=== PATIENT | male | born 1955 | race Caucasian/White ===

== ENCOUNTER 2024-06-24 13:19 | Outpatient (CLI) | payer MEDICARE, BC, SELFPAY ==
--- NOTE | 2024-06-24 13:45 | MR_ITS ---
[facility] [address] [facility] [address] Phone:?[phone] Fax:?[phone] Referring Physician Information: Francois Allison M.D. [address] [facility] [address] Phone:?[phone] Fax:?[phone] Patient:Rhea Manrique D.O.B:?1955 Sex:?Male Phone:?[phone] [facility] MRN:?[id number] Exam Date:?06/24/2024 EXAM: MRI EXAMINATION OF THE RIGHT SHOULDER CLINICAL INFORMATION: Right shoulder pain. No specific injury. History of surgery. Evaluate rotator cuff tear. TECHNICAL INFORMATION: Coronal STIR as well as axial, sagittal and coronal PD and T2-weighted images acquired. Correlation is made with September 20, 2009. INTERPRETATION: Bones: Postsurgical appearance of acromioplasty and AC joint resection. No Hill-Sachs impaction deformity. Patchy marrow edema signal and cystic change involves the greater tuberosity. No occult fracture or AVN. Rotator Cuff: Series 9 image 4 as well as series 5 images 10 and 11 demonstrate a 0.4 cm AP by 1.1 cm lateral segment of abnormality consisting of slender foci of intrasubstance partial tearing involving the mid supraspinatus tendon insertion. There are mild to moderate surrounding changes of tendinopathy. Series 9 image 9 as well as series 5 images 10 through 13 demonstrate a 1.7 cm AP by 0.3 cm mediolateral partial-thickness bursal sided tear involving the supraspinatus musculotendinous junction and involving one half of the fiber thickness. Moderate infraspinatus tendinopathy. The teres minor tendon is intact. There is a small intrasubstance partial tear involving the superior subscapularis tendon with mild to moderate tendinopathy. No appreciable rotator cuff muscle belly atrophy. Coracoacromial arch: Postsurgical appearance of acromioplasty. The bony acromiohumeral interval is measuring 10 to 11 mm. There is no thickening identified of the coracoacromial ligament. Acromioclavicular joint: Status post AC joint resection. There is a lobulated 2.1 cm ganglion cyst within the expected area of the joint. Mild fluid and edema signal within the subacromial/subdeltoid bursa areas. Biceps tendon: There is medial subluxation of the long head biceps tendon from the superior bicipital groove. Moderate tendinopathy traversing this level and continuing intra-articular. Glenohumeral joint and labrum: No significant glenohumeral joint effusion. No discrete loose body within the joint. There are patchy changes of chondromalacia identified along the periphery of the glenoid with subchondral cystic changes along its inferior aspect. There is a 1 x 0.3 cm chondral defect overlying the anterosuperior medial aspect of the humeral head. There is tearing involving the superior aspect of the labrum. No other definite evidence for labral tear. No discrete paralabral cyst is identified. CONCLUSION: 1. Mild to moderate supraspinatus tendinopathy. There are slender foci of intrasubstance partial tearing involving the mid tendon insertion. Additional moderate-sized partial-thickness bursal sided tear of the musculotendinous junction, maximally involving one half of the fiber thickness. 2. Mild to moderate subscapularis tendinopathy with a small intrasubstance partial tear of the superior tendon fibers. 3. Moderate infraspinatus tendinopathy. 4. Biceps rody lesion with medial subluxation of the long head biceps tendon from the superior bicipital. Moderate changes of tendinopathy. 5. 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 There is a small to moderate-sized chondral defect overlying the anterosuperior medial humeral head. 6. The subacromial space is adequately decompressed following acromioplasty and AC joint resection. Mild fluid and edema signal within the subacromial/subdeltoid bursa areas. KES Electronically signed on 06/24/2024 4:33:00 PM by Edgar Drake M.D.
== END 2024-06-24 13:20 | disposition home or self-care (01) ==
LOC: MRI 13:21
PROVIDERS: PCP Family Medicine; Visit Provider Orthopaedic Surgery
DX: M25.511 Pain in right shoulder (principal); M75.101 Unspecified rotator cuff tear or rupture of right shoulder, not specified as traumatic; M75.81 Other shoulder lesions, right shoulder; M94.211 Chondromalacia, right shoulder
CPT/HCPCS: 73221

== ENCOUNTER 2024-07-20 06:41 | Day surgery (SDC) | payer MEDICARE, BC, SELFPAY ==
--- OUTSIDE RECORDS SUMMARY | 2024-07-20 06:43 | XMS_ITS | Continuity of Care Document ---
Author Name Nw[facility]IN User [facility] Address Unknown Organization Unknown Address Unknown Encounters FILTER APPLIED:Only known Encounters with Admission Date within the last 5 years Encounter Location Admission Discharge Billing Code Cloth Seconds S[facility] DE[facility]
--- OUTSIDE RECORDS SUMMARY | 2024-07-20 06:44 | XMS_ITS | Clinical Summary ---
Author Organization [employer] [facility] Address [place], [place] [address] Care Team Providers Care Ordering Machine Operator Name Role Phone Vinod Serrano MD Primary Care Provider [phone] Allergies No known active allergies Medications cholecalciferol (VITAMIN D) 1,000 unit tablet Take 1,000 Units by mouth once daily. Active triamcinolone (ARISTOCORT; KENALOG) 0.1 % creamIndications:D ermatitis Apply twice daily for up to 2 weeks then take a week off and repeat 80 g 1 3 Active magnesium 250 mg tab Take 250 mg by mouth once daily. Active atorvastatin (LIPITOR) 40 mg tabletIndications: Hyperlipidemia, unspecified hyperlipidemia type Take 1 Tablet (40 mg) by mouth once daily. 90 Tablet 3 4 Active tadalafiL (CIALIS) 10 mg tabletIndications: Other male erectile dysfunction Take 1 Tablet (10 mg) by mouth once daily if needed (Erectile dysfunction). Take 30 minutes before sexual activity. 10 Tablet 11 4 Active polyethylene glycol-electrolyte (GOLYTELY) 236-22.74-6.74 -5.86 gram suspensionIndicati ons:Encounter for screening colonoscopy Drink 2 liters the day before the procedure and 2 liters 6 hours prior to procedure. 4000 mL 4 Active oxyCODONE (ROXICODONE) 5 mg immediate release tabletIndications: Hammertoe of right foot Take 1-2 Tablets (5-10 mg) by mouth every 4 hours if needed for Pain. 20 Tablet 5 Active Active Problems Problem Noted Date Diagnosed Date Colon polyp 06/22/2024 Overview (06/22/2024): Colonoscopy 06/2024 TA, repeat in 7 years S/P cervical spinal fusion 10/19/2019 Iron deficiency anemia kiko chery to inadequate dietary iron intake 07/25/2019 Overview (07/25/2019): Check Hemoglobin at next office visit. 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 06/25/2019 Hyperlipidemia 04/09/2016 Erectile dysfunction 07/20/2008 Resolved Problems Problem Noted Date Diagnosed Date Resolved Date Essential hypertension 09/12/201807/17 Routine adult health maintenance 05/26/2014 07/17/2024 Overview (05/26/2014): Colonoscopy 05/2014 normal repeat in 10 years Special screening for malign ant neoplasm of prostate 05/30/2007 07/17/2024 Encounters Date Type Department Care Team Description 07/17/2024 9:10 AM SPECIAL EDUCATION SECRETARY Office Visit [facility] [address] [facility] [place] [address] Juan Anton MD Preoperative Exam (07/20/2024/Caryn gunter correction 5th toe right/DR DAYNA BERNAL/[facility]/[phone] /) 07/17/2024 Travel 06/24/2024 9:45 AM SPECIAL EDUCATION SECRETARY Ancillary Procedure [facility] [address] [facility] [place] [address] 06/24/2024 9:30 AM SPECIAL EDUCATION SECRETARY Office Visit [facility] [address] [facility] [place] [address] Dayna Bernal DPM Consult (Right 5th toe ) 06/24/2024 Orders Only [facility] Scanner 1 scan: (1-Ord) [facility], MR SHOULDER RT WO CON, 06/24/2024 06/24/2024 Travel 06/20/2024 Travel 06/17/2024 Lab Requisition [facility] [phone] Lucas Wood MD 06/16/2024 11:18 AM SPECIAL EDUCATION SECRETARY - 06/16/2024 11:59 PM SPECIAL EDUCATION SECRETARY Hospital Encounter Lucas Wood MD 06/16/2024 Orders Only [facility] Scanner 1 scan: (1-Ord) [facility] 06/16/2024 Surgery [facility] [address] [place] [address] Lucas Wood MD Colonoscopy 06/16/2024 Orders Only [facility] [address] [place] [address] Lucas Wood MD <No scans attached> 06/09/2024 Telephone [facility] [address] [place] [address] Lucas Wood MD Appointment Reminder (Colonoscopy on 06/16/2024 at [facility]) 05/28/2024 Telephone [facility] [address] [place] [address] Lucas Wood MD Need Meds 05/22/2024 1:05 PM SPECIAL EDUCATION SECRETARY Office Visit [facility] [address] [place] [address] Vinod Serrano MD Medicare ANNUAL (subsequent) Visit (70 years); Immunization/Injecti on 05/22/2024 Travel 05/04/2024 Refill [facility] [address] [place] [address] Vinod Serrano MD Refill Request (Lipitor 40mg) from Last 3 Months Immunizations Name Administration Dates Next Due COVID-19 VACCINE SPIKEVAX (M ODERNA 50MCG/0.5ML) 12YO+ PFS 05/22/2024 COVID-19 vaccine (Pfizer-Bio NTech 30mcg/0.3mL) 12YO+ BIVALENT PF, MDV 08/10/2022 COVID-19 vaccine (Pfizer-Bio NTech 30mcg/0.3mL) 12YO+ CHARLETTE-SUCROSE PF, MDV 12/06/2021 COVID-19 vaccine (Pfizer-Bio NTech 30mcg/0.3mL) PF, MDV 05/21/2021 Hepatitis A (Adult) 09/16/2014 Hepatitis B, Unspecified 04/27/2002,03/26/2002 Influenza RIV4 (Age 18+ Year s) PRESERV FREE 04/17/2020 Influenza, High-dose Inactivated 05/19/2019 Influenza, High-dose Quadriv alent Inactivated 05/22/2021 Influenza, IIV3 (Age >=3 years) 04/16/20 13,04/09/2011,04/17/2010,2008,07/20/2008 Influenza, IIV4 05/19/2019, 7,04/17/2016,2013,04/16/2013 Influenza, Inactivated AIIV4 (Age 65+ Years) Preserv Free 04/29/2023,08/10/2022 Influenza, Inactivated IIV3 (Age 65+ Years) Preserv Free 05/22/2024 Pneumococcal Conj 20-valent (Prevnar 20) 05/22/2024 Tdap 06/12/2017,05/30/2007 Typhoid (injectable) 09/16/2014 Family History Medical History Relation Name Comments Other Brother 1 in a MVA y oung Other Brother 2 in a MVA y oung Heart failure Father at 87 of CHF Hypertension Maternal Aunt Heart Disease Maternal Grandfather o f HI at 59 Dementia Maternal Uncle at 70 Dementia Mother at 70 Hypertension Mother Relation Name Status Comments Brother 1 Brother 2 Father (Age 87) Pnemonia Maternal Aunt Maternal Grandfather Maternal Uncle Mother (Age 70) Dementia Social History Tobacco Use Types Packs/Day Years Used Date Smoking Tobacco: Former Cigarettes 1 20 0 07/15/1964 - 07/15/1984 Smokeless Tobacco: Former Chew Quit: 07/29/2012 Tobacco Cessation:Counseling Given: Yes Alcohol Use Standard Drinks/Week Comments Yes 2 (1 standard drink = 0.6 oz pur e alcohol) see screening [facility] Utilities Answer Date Recorded Do you have trouble paying f or utilities (for example, heat, electricity, water, phone)? Yes 05/22/2024 PHQ-2 Answer Date Recorded PHQ-2 TOTAL SCORE 0 05/22/2024 Social Connections Answer Date Recorded Do you often feel lonely or isolated from those around you? 0 05/22/2024 Alcohol Use Answer Date Recorded How often do you have a drink containing alcohol ? 3 05/22/2024 How many drinks containing a lcohol do you have on a typical day when you are drinking? 0 05/22/2024 How often do you have five or more drinks on one occasion? 0 05/22/2024 Financial Resource Strain Answer Date R ecorded Difficulty of Paying Living Expenses 3 05/22/2024 Difficulty of Paying Living Expenses Not on file 05/22/2024 Food Insecurity Answer Date Recorded Do you worry your food will run out before you are able to buy more? 1 05/22/2024 Transportation Needs Answer Date Record ed Does lack of transportation keep you from medica l appointments? 1 05/22/2024 Does lack of transportation keep you from work, meetings or getting things that you need? 1 05/22/2024 Housing Stability Answer Date Recorded What is your housing situation today? 1 05/22/2024 Sex and Gender Information Value Date Recorded Sex Assigned at Not on file Legal Sex Male 5:24 AM SPECIAL EDUCATION SECRETARY Gender Identity Not on file Sexual Orientation Not on file Occupation Industry Job Start Date Job End Date [employer] Not on file Not on file Not on file Obstetrics History Last Filed Vital Signs Vital Sign Reading Time Taken Comments Blood Pressure 117/73 07/17/2024 9:11 AM SPECIAL EDUCATION SECRETARY Pulse 63 07/17/2024 9:11 AM SPECIAL EDUCATION SECRETARY Temperature 36.6 C (97.8 F) 07/17/2024 9:11 AM SPECIAL EDUCATION SECRETARY Respiratory Rate 14 07/17/2024 9:11 AM SPECIAL EDUCATION SECRETARY Oxygen Saturation 100% 07/17/2024 9:11 AM SPECIAL EDUCATION SECRETARY Inhaled Oxygen Concentration - - Weight 83.5 kg (184 lb) 07/17/2024 9:11 AM SPECIAL EDUCATION SECRETARY Height 172.4 cm (5' 7.87) 07/17/2024 9:11 AM CS T Body Mass Index 28.08 07/17/2024 9:11 AM SPECIAL EDUCATION SECRETARY Plan of Treatment Upcoming Encounters Date Type Department Care Team (Late st Contact Info) Description 07/20/2024 8:00 AM SPECIAL EDUCATION SECRETARY Office Visit [facility] [address] [place] [phone] Dayna Bernal DPM [address] [facility] [place] [address] 07/22/2024 10:30 AM SPECIAL EDUCATION SECRETARY Office Visit [facility] [address] [place] [address] Dayna Bernal DPM [address] [facility] [place] [address] 08/05/2024 10:30 AM SPECIAL EDUCATION SECRETARY Office Visit [facility] [address] [facility] [place] [address] Dayna Bernal DPM [address] [facility] [place] [address] 09/02/2024 10:30 AM SPECIAL EDUCATION SECRETARY Office Visit [facility] [address] [facility] [place] [address] Dayna Bernal DPM [address] [facility] [place] [address] Health Maintenance Due Date Last Done Comments Zoster (shingles) series for age 50+ (1 of 2) 10/06/2003 RSV vaccine for adults or (1 - Risk 60-74 years 1-dose series) 2013 Depression screening for age 12+ 05/22/2025 05/22/2024, 03/19/2023, 12/06/2021, Additional history exists Medicare Wellness for age 65+ 05/23/2025 05/22/2024 BMI (ht and wt on same day) for age 18+ 07/17/2025 07/17/2024, 05/22/2024, 03/19/2023, Additional history exists Tetanus booster 06/12/2027 06/12/2017, 05/30/2007 Lipids for age 45-75 05/22/2029 05/22/2024, 02/01/2023, 12/06/2021, Additional history exists Colonoscopy through age 75 06/16/2031 06/16/2024, Tdap Completed 06/12/2017, 05/30/2007 Hepatitis C screening for ag e 18-79 Completed 09/24/2017 AAA screening age 65-74 Completed 03/22/2023 COVID-19 vaccine series Completed 05/22/20 24, 04/30/2023, 08/10/2022, Additional history exists Influenza for age 65+ Completed 05/22/2024 , 04/29/2023, 08/10/2022, Additional history exists Pneumococcal series for age 50+ Completed 4 Medical Devices Implanted Type Area Retort Setter Device Identifier Shelf Expiration Date Model / Serial / Lot [id number] ne Matrix 5cc [place] Plus Paste Dbm Implanted:Qty: 1 on 07/31/2019 by Jamshid Jordan MD at [facility] Explanted:at [facility] (Quantity not on file) Spine [employer] Spine/Ortho 04/05/2021 [id number] / [id number] / Screw Cerv 3.5x24mm Infinity Multi Axial - [id number] Implanted:Qty: 1 on 07/31/2019 by Jamshid Jordan MD at [facility] Spine [employer] Spine[employer] [id number] / / Screw Cerv 3.5x20mm Infinity Multi Axial - [id number] Implanted:Qty: 1 on 07/31/2019 by Jamshid Jordan MD at [facility] Spine [employer] Sp[employer] [id number] / / Set Screw Cerv Infinity Std - [id number] Implanted:Qty: 6 on 07/31/2019 by Jamshid Jordan MD at [facility] Spine [employer] Spine[employer]Or[employer] [id number] / / Screw Cerv 3.5x14mm Infinity Multi Axial - [id number] Implanted:Qty: 3 on 07/31/2019 by Jamshid Jordan MD at [facility] Spine [employer] Spine[employer]Or[employer]o [id number] / / Screw Cerv 3.5x12mm Infinity Multi Axial - [id number] Implanted:Qty: 1 on 07/31/2019 by Jamshid Jordan MD at [facility] Sp[employer] Sp[employer] [id number]# / / Screw Cerv 4x16mm Infinity Multi Axial - [id number] Implanted:Qty: 1 on 07/31/2019 by Jamshid Jordan MD at [facility] Spine [employer] Spine[employer]Or[employer] [id number]# / / Espinoza Cerv 3.5x50mm Infinity Pre-Cut - [id number] Implanted:Qty: 2 on 07/31/2019 by Jamshid Jordan MD at [facility] Spine [employer] [id number] / / Procedures Procedure Name Priority Date/Time Associated Diagnosis Comments XR FOOT 3 VIEWS RIGHT Routine 06/24/2024 9:50 AM SPECIAL EDUCATION SECRETARY Toe pain, chronic, right SCAN-MRI INTERPRETATION 06/24/2024 12:00 AM SPECIAL EDUCATION SECRETARY LAB TRACKING EVENT Routine 06/16/2024 12 :35 PM SPECIAL EDUCATION SECRETARY PATH TISSUE EXAM Routine 06/16/2024 12:3 5 PM SPECIAL EDUCATION SECRETARY SCAN-COLONOSCOPY 06/16/2024 12:0 0 AM SPECIAL EDUCATION SECRETARY PSA (TOTAL) ([facility]) Routine 05/22/2024 2 :13 PM SPECIAL EDUCATION SECRETARY Prostate cancer screening LIPID PANEL W REFLEX MEASURED LDL Routine 05/22/2024 2:13 PM SPECIAL EDUCATION SECRETARY Hyperlipidemia, unspecified hyperlipidemia type US ABD AORTA SCREENING Routine 2:28 PM CDT Screening for AAA (aortic abdominal aneurysm) ANTI HCV Routine 09/24/2017 7:35 AM CDT Need for hepatitis C screening test SURGICAL PROCEDURE (TYPE PROCEDURE DESCRIPTION BELOW) Encounter for screening colonoscopy from Last 3 Months or Most Recently Relevant to Health Maintenance Results * XR FOOT 3 VIEWS RIGHT (06/24/2024 9:50 AM SPECIAL EDUCATION SECRETARY) Anatomical Region Laterality Modality FEET, FOOT R Computed Radiogr aphy 06/24/2024 12:4 7 PM SPECIAL EDUCATION SECRETARY Narrative 06/24/2024 12:47 PM SPECIAL EDUCATION SECRETARY For Patients: As a result of the Century Cures Act, medical imaging exams and procedure reports are released immediately into your electronic medical record. You may view this report before your referring provider. If you have questions, please contact your health care provider. INDICATION: Chronic toe pain. TECHNIQUE: Three weightbearing views of the right foot. FINDINGS: Advanced degenerative change in the right 1st MTP joint with joint space narrowing, hypertrophic and subchondral cystic change. Prominent spurring on the medial dorsal metaphysis, possibly posttraumatic. Plantar heel spur and calcification in the distal Achilles tendon. Dictated by Franklin Guerra MD @ 06/24/2024 12:47:58 PM (Electronically Signed) Procedure Note Franklin Guerra MD - 06/24/2024 For Patients: As a result of the Century Cures Act, medical imagingexams and procedure reports are released immediately into your electronicmedical record. You may view this report before your referring provider.If you have questions, please contact your health care provider. INDICATION: Chronic toe pain. TECHNIQUE: Three weightbearing views of the right foot. FINDINGS: Advanced degenerative change in the right 1st MTP joint with joint spacenarrowing, hypertrophic and subchondral cystic change. Prominent spurringon the medial dorsal metaphysis, possibly posttraumatic. Plantar heel spurand calcification in the distal Achilles tendon. Dictated by Franklin Guerra MD @ 06/24/2024 12:47:58 PM (Electronically Signed) us Dayna Bernal DPM GENERAL IMAGING Final Res ult * SCAN-MRI INTERPRETATION (06/24/2024 12:00 AM SPECIAL EDUCATION SECRETARY) Anatomical Region Laterality Modality Other us Scanner OTHER Final Result * LAB TRACKING EVENT (06/16/2024 12:35 PM SPECIAL EDUCATION SECRETARY) Other (Other) Client Collect / Unknown 06/16/2024 12:35 PM SPECIAL EDUCATION SECRETARY 06/17/2024 6:26 PM SPECIAL EDUCATION SECRETARY us Lucas Wood MD LAB BILL ONLY Final Res ult [facility] [address] [place] [address], [place] * PATH TISSUE EXAM (06/16/2024 12:35 PM SPECIAL EDUCATION SECRETARY) Case Report Pathology Report Case: [id number] Authorizing Provider: Lucas Wood MD Collected: 06/16/2024 1235 Ordering Location: [facility] Received: 06/17/20242114 Pathologist: Zackary Sheldon MD Specimen: Cecal Polyp 06/22/2024 10:54 AM SPECIAL EDUCATION SECRETARY [facility] Final Diagnosis A) COLON, CECUM, POLYPECTOMY: 1. Tubular adenoma 2. Negative for high grade dysplasia 3. Per the colonoscopy report: a. Polyp size: 1 mm b. Resection: Complete c. Retrieval: Complete 06/22/2024 10:54 AM SPECIAL EDUCATION SECRETARY [facility] Clinical Information Mr. Manrique is a 68 y.o. undergoing screening colonoscopy. 06/22/2024 10:54 AM SPECIAL EDUCATION SECRETARY [facility] Gross Description A) Received in formalin is a burris mucosal fragment measuring 3 mm in greatest dimension, which is entirely submitted in one cassette. It is labeled with the patient's name and designated cecal polyp. Pallavi Talon 06/18/2024 10:58 AM 06/22/2024 10:54 AM SPECIAL EDUCATION SECRETARY [facility] Microscopic Description The final diagnosis is based on microscopic examination of appropriate sections of all specimens. 06/22/2024 10:54 AM SPECIAL EDUCATION SECRETARY [facility] Additional Information Interpreted at [facility][1] Laboratory - [address], [place] [address] 06/22/2024 10:54 AM SPECIAL EDUCATION SECRETARY [facility] Other (Cecal Polyp) 06/16/2024 12:35 PM SPECIAL EDUCATION SECRETARY 06/17/2024 9:15 PM SPECIAL EDUCATION SECRETARY us Lucas Wood MD PATHOLOGY/CYTOLOGY Final Result [facility] [address] [place] [address], [place] * SCAN-COLONOSCOPY (06/16/2024 12:00 AM SPECIAL EDUCATION SECRETARY) us Scanner OTHER Final Result * PSA (TOTAL) (QUEST) (05/22/2024 2:13 PM SPECIAL EDUCATION SECRETARY) PSA, TOTAL 0.51 < OR = 4.00 ng/mL [facility] Comment: The total PSA value from this assay system is standardized against the WHO standard. The test result will be approximately 20% lower when compared to the equimolar-standardized total PSA (Breana Selma). Comparison of serial PSA results should be interpreted with this fact in mind. This test was performed using the Siemens chemiluminescent method. Values obtained from different assay methods cannot be used interchangeably. PSA levels, regardless of value, should not be interpreted as absolute evidence of the presence or absence of disease. Blood BLOOD SPECIMEN / Unknown 05/22/2024 2:13 PM SPECIAL EDUCATION SECRETARY 05/22/2024 2:14 PM SPECIAL EDUCATION SECRETARY Vinod Serrano MD SEND OUTS Final Resu lt [employer] [facility] [address] [place] [address], [facility] [address] [place] [address] * (ABNORMAL) LIPID PANEL W REFLEX MEASURED LDL (05/22/2024 2:13 PM SPECIAL EDUCATION SECRETARY) CHOLESTEROL, TOTAL 179 <200 mg/dL [facility] HDL CHOLESTEROL 36(L) > OR = 40 mg/dL [facility] [facility] TRIGLYCERIDES 233(H) <150 mg/dL [facility] [facility] Comment: If a non-fasting specimen was collected, consider repeat triglyceride testing on a fasting specimen if clinically indicated. Greer et al. J. of Clin. Lipidol. 2015;9:129-169. LDL-CHOLESTEROL 108(H) mg/dL (calc) [facility] [employer] [facility] Comment: Reference range: <100 Desirable range <100 mg/dL for primary prevention; <70 mg/dL for patients with CHD or diabetic patients with > or = 2 CHD risk factors. LDL-C is now calculated using the Lucas-Ponce calculation, which is a validated novel method providing better accuracy than the Friedewald equation in the estimation of LDL-C. Lucas SS et al. JC. 2013;310(77): 9571-8531 (http://education.[employer]/faq/MZZ591) CHOL/HDLC RATIO 5.0(H) <5.0 (calc) [facility] NON HDL CHOLESTEROL 143(H) <130 mg/dL (calc) [facility] Comment: For patients with diabetes plus 1 major ASCVD risk factor, treating to a non-HDL-C goal of <100 mg/dL (LDL-C of <70 mg/dL) is considered a therapeutic option. Blood BLOOD SPECIMEN / Unknown 05/22/2024 2:13 PM SPECIAL EDUCATION SECRETARY 05/22/2024 2:14 PM SPECIAL EDUCATION SECRETARY us Vinod Serrano MD CHEMISTRY Final Resu lt [employer] [facility] [address] [place] [address], [employer] [address] [address] * US ABD AORTA SCREENING [[id number]] (03/22/2023 2:28 PM CDT) Anatomical Region Laterality Modality Abdomen, AORTA Ultrasound 03/22/2023 2:47 PM CDT Narrative 03/22/2023 2:47 PM CDT For Patients: As a result of the Century Cures Act, medical imaging exams and procedure reports are released immediately into your electronic medical record. You may view this report before your referring provider. If you have questions, please contact your health care provider. Examination: US abdominal aorta Indication: Abdominal aortic aneurysm screening. Technique: Prather scale and color Doppler images of the aorta and common iliac arteries are obtained. Comparison: None Findings: Proximal aorta: Not visualized due to overlying bowel gas Mid aorta: 1.7 x 2.0 cm Distal aorta: 1.8 x 1.4 cm Right common iliac artery: 1.6 x 1.6 cm Left common iliac artery: 1.5 x 1.3 cm Impression: No evidence of abdominal aortic aneurysm within the visualized aorta. Dictated by Michael Husain MD @ Mar 22 2023 2:47PM (Electronically Signed) Procedure Note Michael Husain MD - 03/22/2023 For Patients: As a result of the Cures Act, medical imagingexams and procedure reports are released immediately into your electronicmedical record. You may view this report before your referring provider.If you have questions, please contact your health care provider. Examination: US abdominal aorta Indication: Abdominal aortic aneurysm screening. Technique: Prather scale and color Doppler images of the aorta and common iliac arteriesare obtained. Comparison: None Findings: Proximal aorta: Not visualized due to overlying bowel gas Mid aorta: 1.7 x 2.0 cm Distal aorta: 1.8 x 1.4 cm Right common iliac artery: 1.6 x 1.6 cm Left common iliac artery: 1.5 x 1.3 cm Impression: No evidence of abdominal aortic aneurysm within the visualized aorta. Dictated by Michael Husain MD @ Mar 22 2023 2:47PM (Electronically Signed) Vinod Serrano MD Final Resu lt * ANTI HCV [[id number]] (09/24/2017 7:35 AM CDT) HEPATITIS C ANTIBODY Non-React yonathan Non-React yonathan 09/24/2017 2:26 PM CDT [facility] Comment:Antibodies to HCV no t detected; does not exclude the possibility of exposure to HCV. Blood BLOOD SPECIMEN / Unknown Venipuncture / Unknown 09/24/2017 7:35 AM CDT 09/24/2017 7:35 AM CDT Vinod Serrano MD SEND OUTS Final Resu lt [facility] [address] [place] [address], [place] from Last 3 Months or Most Recently Relevant to Health Maintenance Insurance MEDICARE PART A HB ONLY MEDICARE PB ONLY [facility] MEDICARE PART B HB ONLY WORKERS COMP Advance Directives Documents on File Type Date Recorded Patient Behavioral Health Professional Expl anation Healthcare Directive 06/14/2017 3:09 PM AURELIA, 06/04/2017 * Full Code (Latest Code Status on File) Date Activated Date Inactivated Comments 07/31/2019 6:05 AM 08/03/2019 7:00 PM Question Answer Comments Code Status Discussion: Not DiscussedPer Advance Care Plan Care Teams Ordering Machine Operator Relationship Specialty Start Date End Date Vinod Serrano MD [address] [place] [id number] PCP - General 11/23/05
[2024-07-20 07:34] VITALS: BMI 29.0
[2024-07-20 07:57] VITALS: BP 141/71; PULSE 56; RESP 16; TEMP 36.1; O2SAT 98
[2024-07-20] MEDS: SODIUM CHLORIDE 0.9 % (FLUSH) 10 ML SYRINGE IVF (07:59)
[2024-07-20] MEDS: 0.9 % SODIUM CHLORIDE 500 ML 500 ML 100 ML IV (08:26)
[2024-07-20] MEDS: BUPIVACAINE 0.25% 30 ML INJECTION (09:00)
--- NOTE | 2024-07-20 09:00 | CRLHL7_ITS ---
For Patients: As a result of the Cures Act, medical imaging exams and procedure reports are released immediately into your electronic medical record. You may view this report before your referring provider. If you have questions, please contact your health care provider. Indication: Fifth hammertoe correction Technique: Two fluoroscopic images of the right little toe. Fluoroscopic time 6.2 seconds. IMPRESSION: Fluoroscopic guidance for 5th hammertoe correction. Degenerative changes at the 1st MTP joint. Dictated by Michael Husain MD @ 07/20/2024 10:35:02 AM (Electronically Signed)
[2024-07-20] MEDS: CEFAZOLIN 1 GM inj IVP (09:04)
[2024-07-20 09:50] VITALS: BP 110/71; PULSE 70; RESP 14; TEMP 36.3; O2SAT 92
--- NOTE | 2024-07-20 09:52 | W.ANESCHARGE ---
Anesthesia Charges Start Date/Time Anesthesia Start Date: 07/20/24 Anesthesia Start Time: 08:52 Stop Date/Time Anesthesia Stop Date: 07/20/24 Anesthesia Stop Time: 09:51
[2024-07-20 10:00] VITALS: BP 107/69; PULSE 63; RESP 14; O2SAT 94
[2024-07-20 10:15] VITALS: BP 114/73; PULSE 63; RESP 16; O2SAT 95
[2024-07-20 10:30] VITALS: BP 121/73; PULSE 65; RESP 16; O2SAT 97
[2024-07-20 11:00] VITALS: BP 122/58; PULSE 62; RESP 16; O2SAT 97
--- NOTE | 2024-07-20 15:47 | W.PODPROC_ITS ---
Date of Procedure: 07/20/24 Surgeon: Rodrigo Luther DPM Pre-op Diagnosis: Hammertoe 5th digit right Post-op Diagnosis: Hammertoe 5th digit right Type of Procedure: Repair of hammertoe 5th digit right Indications: Patient is having ongoing pain due to hammertoe deformity 5th digit right foot. He wishes to have surgical correction. I reviewed the procedure, recovery, expectation potential complications. These include but not limited to: Poor wound healing, infection, under correction, over correction, potential need for future surgery, deep venous thrombosis, pulmonary embolism possible . He understands risks written consent was obtained. Site marked. Procedure Description: Patient brought the operating room placed supine position on operating table at the time IV sedation was initiated local anesthetic injected into the 5th toe right foot. He was then prepped and draped in sterile fashion. Standard time- out protocol followed. Right foot was exsanguinated the tourniquet inflated. An oblique semielliptical incision was made over the PIPJ of the 5th toe. Skin wedge was removed. Transverse incision was made through the extensor tendon and joint capsule at the PIPJ. Mediolateral collateral ligament released. Oscillating saw was used to resect the head of the proximal phalanx. Wound irrigated normal sterile saline. The toe was de rotated and the extensor tendon repaired with 4-0 Vicryl and skin repaired with 4-0 Prolene. Small incision was made to the distal lateral 5th toe directly down to bone. A rotary bur was used to remodel the distal tuft. Wound irrigated normal sterile saline and closed with 4-0 Prolene. Sterile dressing applied. Tourniquet was released and normal capillary fill time returned to the 5th toe. Patient is transferred from OR to same-day surgery vital signs stable and vascular status intact. He will be discharged per same-day surgery protocol. He was given both written and verbal postop instructions. He will follow-up this week. Anesthesia: MAC and local Hemostasis: ankle Estimated blood loss (mL): 2 Specimens: none sent Disposition: same day
== END 2024-07-20 11:42 | disposition home or self-care (01) ==
PROVIDERS: PCP Family Medicine; Visit Provider Podiatrist
PROC: (CPT 28285; principal; 2024-07-20 09:00)
DX: M20.41 Other hammer toe(s) (acquired), right foot (principal)
CPT/HCPCS: 28285; 01480; 73620; 76000; J0665; J0690; J1100; J2250; J2405; J2704; J3010; J7030

== ENCOUNTER 2024-08-12 08:45 | Outpatient (RCR) | payer MEDICARE, BC, SELFPAY ==
--- NOTE | 2024-07-30 09:59 | PT.OPEX ---
[facility] Start: 07/29/24 15:09 Freq: Status: Active Protocol: Document 07/30/24 07:17 HLA (Rec: 07/30/24 09:02 HLA [id number]) E-signed By Ramila Jaffe, PT, DPT Physical Therapy Outpatient Evaluation Insurance Information Insurance Name [employer] Medical Diagnosis R shldr bursitis and RTC tendinopathy with partial tear . Acute tearing of R biceps w/ tendinopathy Treating Diagnosis pain R shldr, weakness, impaired ROM Imaging Report Information MRI- 1. Mild to moderate supraspinatus tendinopathy. There are slender foci of intrasubstance partial tearing involving the mid tendon insertion. Additional moderate -sized partial-thickness bursal sided tear of the musculotendinous junction, maximally involving one half of the fiber thickness. 2. Mild to moderate subscapularis tendinopathy with a small intrasubstance partial tear of the superior tendon fibers. 3. Moderate infraspinatus tendinopathy. 4. Biceps rody lesion with medial subluxation of the long head biceps tendon from the superior bicipital. Moderate changes of tendinopathy. 5. 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 There is a small to moderate-sized chondral defect overlying the anterosuperior medial humeral head. Referring MD Allison Subjective Subjective R shldr aggravates easily with certain machines at [employer], lifting, sleeping on his R side. 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 Had spine fusion , B knee scopes, B shldr scopes. Wants to get back to lifting and was pleased Dr. Allison felt his shldr tendinopathies/RTC issues didn 't warrant surgery. Pt will be going skiing at [employer] this week, agreeable to advice about activity level, preventing pain. Pain Comments R shldr pain lying on his shldr, 'catches or clunks' lifting arm. 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 Precautions Treatment Precautions/Contraindications R shldr pain, s/p R 5th hammertoe correction 07/20/24 Weight Bearing Status Weight Bear as Tolerated Therapy Limitations/Systems Review Not Limited Objective Range of Motion Shldr flex 0-170 R, full L Shldr abd 0-170 R, full L Shlder ER 0-60 R, 0-65 L Shldr IR 0-45 R, 0-60 L Elbow 0-120 B neck flex to chest, ext to neutral, fwd head, sidebend 0- 20 B, rotation 0-45 B Strength Shldr flex 5/5 L, 5-/5 R Shldr abd 5/5 L, 5-/5 R Shldr ER 5/5 L, 5-/5 R Shldr IR 5/5 L, 5-/5 R Elbow 5/5 L, 4+/5 R Swelling no edema Palpation trigger point discomfort R superior medial angle of scap, bic tendon insertion, supraspinatus insertion Balance & Gait ind amb, does appear mildly antalgic but safe, balance intact s/p R hammertoe surgery Posture fwd head, tight pecs Sensation/Reflexes intact to light touch Functional Test Performed & Score R shldr Neers negative drop arm R negative belly press negative apprehension test negative empty can negative Assessment Assessment/Impression Mac is a 68 year old male with hx of B RTC arthroscopic surgery, B knee arthroscopy, had increased pain R shldr with sleeping, exercising and reaching. Saw ortho who dx bursitis vs R RTC tendinopathy . Imaging shows R supraspinatus, R subscapularis and biceps tendinopathy, partial tear R subscapularis. Pt reports he will be going skiing at [employer], wants to do well and seeks advice how to move his R arm with decreased pain/clunking. Pt presents with 0-170 R shldr flex/abd, ER/IR decreased, strength R UE 5-/5. Noted scapula is elevated and abducted on R. Lacks movement in dep and retraction as he elevates his shldr. Pec is tight on R, fwd head. Worked with pt on scap stability ex, down and back, posture ex, stretches and strengthening with green tband . Education provided in biomechanics with any lifting/ machines, pain is is guide. Issued ex for pt to work on, he will return next week and will reassess his mobility, mechanics and movement, goal to advance to body weight strengthening, pushups and machines without pain at [facility]. He hasn't been able to do that in the past month. Primary Functional Limitations impaired ROM R shldr, impaired strength, impaired ADLs Plan of Care Rehabilitation Potential Good Physical Therapy Goals Within 5 weeks: 1. Patient will be independent in home ex program with scapular stabilization, strengthening so he can do ADLs and ex/strengthening program pain free. 2. Pt will have 0-175 degrees shoulder flexion and abduction , ER 0-70 degrees and IR of shoulder WNL for independence in ADLs. 3. Pt will have return of surgical shoulder strength to 5/5 for strengthening program at [facility]. Coordination/Communication With Referral Source Treatment Plan/Direct Interventions Electrical Stimulation,Heat, Ice/Cold/Vasopneumatic,Joint Mobilization,Manual Therapy, Neuromuscular Re-ed,Orthotics/ Braces,Self-Care/Home Management,Therapeutic Activities,Therapeutic Exercises Frequency/Duration 1x/week x 4-5 weeks Patient Will Be Discharged From Therapy Completion of LTG(s),Skills Plateau,Independent w/HEP, Independently Progressing Evaluation Billing Untimed Code Treatment Minutes 16 PT Eval No Charge No Complexity Low Certification Information Initial Certification Date 07/30/24 Ending Certification Date 10/27/24 Provider Signature Required Yes Provider Signature Shows Agreement With POC & Medical Necessity Physician NPI Number Write NPI# Here Physician Comment/Change : Physician Signature & Date Requested Please Sign/Date Here
== END 2024-08-13 11:30 | disposition home or self-care (01) ==
PROVIDERS: PCP Family Medicine; Visit Provider Orthopaedic Surgery
DX: M75.51 Bursitis of right shoulder (principal); M25.511 Pain in right shoulder; R53.1 Weakness; Z51.89 Encounter for other specified aftercare
CPT/HCPCS: 97110; 97161